=== PATIENT | female | born 1980 | race Caucasian/White ===

== ENCOUNTER → 2016-09-09 | Outpatient (CLI) | payer BC | LOC: OD 09:47 | PROVIDERS: ATTEND Family Medicine | DX: J02.9 Acute pharyngitis, unspecified (principal) | CPT/HCPCS: 36415; 86308 ==

== ENCOUNTER 2016-11-23 23:07 | Emergency (ER) | payer BC ==
[2016-11-23 23:31] VITALS: BP 91/63
== END 2016-11-24 01:53 | disposition left against medical advice (07) ==
LOC: ER 23:07
DX: Z53.21 Procedure and treatment not carried out due to patient leaving prior to being seen by health care provider (principal)

== ENCOUNTER 2016-11-24 19:30 | Emergency (ER) | payer BC ==
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
[2016-11-24 23:32] VITALS: BP 100/58
== END 2016-11-24 23:30 | disposition home or self-care (01) ==
LOC: ER 19:30
DX: S00.83XA Contusion of other part of head, initial encounter (principal); W01.190A Fall on same level from slipping, tripping and stumbling with subsequent striking against furniture, initial encounter
CPT/HCPCS: 70486; 99283

== ENCOUNTER 2017-07-13 16:59 | Emergency (ER) | payer BC ==
[2017-07-13 17:20] VITALS: BP 97/58
[2017-07-13] MEDS ORDERED: OXYCODONE-ACETAMINOPHEN 5-325 MG TABLET PO ONE (17:24)
[2017-07-13] MEDS ORDERED: ONDANSETRON 4 MG TAB.RAPDIS PO ONE (17:31)
[2017-07-13] MEDS ORDERED: CYCLOBENZAPRINE HCL 10 MG TABLET PO ONE (18:34)
--- NOTE | 2017-07-13 18:42 | RADIOLOGY REPORT (SQ) ---
EXAM DESCRIPTION: L SPINE WHOLE COMPLETED DATE/TIME: 07/13/2017 6:20 pm REASON FOR STUDY: back pain COMPARISON: None. NUMBER OF VIEWS: Five views including obliques. TECHNIQUE: AP, lateral, oblique, and sacral radiographic images acquired of the lumbar spine. LIMITATIONS: None. FINDINGS: MINERALIZATION: Normal. SEGMENTATION: Normal. No transitional anatomy. ALIGNMENT: Mild scoliosis convex to the left. VERTEBRAE: Maintained height. No fracture or worrisome bone lesion. DISCS: Mild disc space loss at L5-S1 small osteophytes in the lower thoracic and upper lumbar spine. POSTERIOR ELEMENTS: Pedicles and facets are intact. No pars defect or posterior arch defects. HARDWARE: None in the spine. PARASPINAL SOFT TISSUES: Normal. PELVIS: Intact as visualized. No fractures or worrisome bone lesions. SI joints intact. OTHER: No other significant finding. IMPRESSION: Mild scoliosis and mild degenerative changes involving the lumbar spine. TECHNICAL DOCUMENTATION: JOB ID: [id number] [employer]- All Rights Reserved
--- NOTE | 2017-07-13 18:43 | ER Document Report ---
ED Neck/Back Problem - General Chief Complaint: Back Pain Stated Complaint: BACK PAIN Time Seen by Provider: 07/13/17 17:24 Mode of Arrival: Medic Information source: Patient Notes: Patient is a 37-year-old female who presents to the ER today for low back pain that started today when she was bending down. Patient states it felt like it locked up on her and she has not been able to feel like she could move since. Patient admits that it slightly radiates into the right butt cheek but no further down either of her legs. She denies any loss of bladder or bowel function. She admits to a history of some chronic back pain but has not had any issues in years. She denies any burning with urination, hematuria, . She denies any injury. She denies numbness or tingling. TRAVEL OUTSIDE OF THE [place] IN LAST 30 DAYS: No - Related Data Allergies/Adverse Reactions: No Known Allergies Allergy (Verified 07/13/17 17:03) Past Medical History - General Information source: Patient - Social History Smoking Status: Current Every Day Smoker Chew tobacco use (# tins/day): No Frequency of alcohol use: Social Drug Abuse: None Family History: Reviewed & Not Pertinent Patient has suicidal ideation: No Patient has homicidal ideation: No Neurological Medical History: Reports: Hx Migraine. Denies: Hx Seizures Renal/ Medical History: Denies: Hx Peritoneal Dialysis Past Surgical History: Reports: Hx Tubal Ligation. Denies: Hx Hysterectomy, Hx Pacemaker - Immunizations Hx Diphtheria, Pertussis, Tetanus Vaccination: Yes Review of Systems - Review of Systems Constitutional: No symptoms reported EENT: No symptoms reported Cardiovascular: No symptoms reported Respiratory: No symptoms reported Gastrointestinal: No symptoms reported Genitourinary: No symptoms reported Female Genitourinary: No symptoms reported Musculoskeletal: See HPI Skin: No symptoms reported Hematologic/Lymphatic: No symptoms reported Neurological/Psychological: No symptoms reported Physical Exam - Vital signs Vitals: Temp Pulse Resp BP Pulse Ox 99.0 F 78 20 97/58 L 98 07/13/17 17:18 07/13/17 17:18 07/13/17 17:18 07/13/17 17:18 07/13/17 17:18 - Notes Notes: PHYSICAL EXAMINATION: GENERAL: Uncomfortable appearing, but is in no acute distress. HEAD: Atraumatic, normocephalic. EYES: Pupils equal round and reactive to light, extraocular movements intact, sclera anicteric, conjunctiva are normal. NECK: Normal range of motion, supple without lymphadenopathy LUNGS: CTAB and equal. No wheezes rales or rhonchi. HEART: Regular rate and rhythm without murmurs ABDOMEN: Soft, no tenderness. No guarding, no rebound BACK: no vertebral tenderness, decreased rom at hips due to pain GI/: no CVA tenderness EXTREMITIES: Normal range of motion, no pitting edema. No cyanosis. NEUROLOGICAL: Cranial nerves grossly intact. Normal sensory/motor exams. PSYCH: Normal mood, normal affect. SKIN: Warm, Dry, normal turgor, no rashes or lesions noted Course - Re-evaluation Re-evalutation: 07/13/17 18:43 pt is nontender to exam, doesn't want to move to give us urine. - Vital Signs Vital signs: Temp Pulse Resp BP Pulse Ox 99.0 F 78 20 97/58 L 98 07/13/17 17:18 07/13/17 17:18 07/13/17 17:18 07/13/17 17:18 07/13/17 17:18 Discharge - Discharge Clinical Impression: Muscle spasm of back Condition: Stable Disposition: HOME, SELF-CARE Instructions: Warm Packs ([facility]), Ice Packs ([facility]), Low Back Pain ([facility]) Additional Instructions: Return immediately for any new or worsening symptoms. Follow up with primary care provider, call tomorrow to make followup appointment. Prescriptions: Cyclobenzaprine HCl [Flexeril 10 mg Tablet] 10 mg PO TIDP PRN #15 tab PRN Reason: Hydrocodone/Acetaminophen [[place] 5-325 mg Tablet] 1 tab PO Q4 PRN #15 tablet PRN Reason:
== END 2017-07-13 19:11 | disposition home or self-care (01) ==
LOC: ER 16:59
DX: M62.830 Muscle spasm of back (principal); M54.5 Low back pain; F17.200 Nicotine dependence, unspecified, uncomplicated
CPT/HCPCS: 99283; 72110; S0119

== ENCOUNTER 2017-08-05 08:23 | Emergency (ER) | payer OTHER, BC ==
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
[2017-08-05] MEDS ORDERED: ACETAMINOPHEN 325 MG TABLET PO ONE (09:54)
[2017-08-05 10:36] VITALS: BP 99/67
== END 2017-08-05 10:36 | disposition home or self-care (01) ==
LOC: ER 08:23
DX: R51 Headache (principal); M54.2 Cervicalgia; V87.7XXA Person injured in collision between other specified motor vehicles (traffic), initial encounter
CPT/HCPCS: 99284; 70450; 72125; L0120